=== PATIENT | female | born 1975 | race Caucasian/White ===

== ENCOUNTER → 2016-08-02 | Outpatient (CLI) | payer OTHER ==
[~2016-08-02] MED LIST: ASCO500T16 PO; ASPI-390 PO; CHLO1TAB47 PO; HYDR5SYP11 PO; MTR600X PO; OXYC5TAB PO; PRED50TA PO
[2016-08-02 18:10] LABS: THYROID STIMULATING HORMONE 0.577 uIu/ml (0.300-4.500)
== END | disposition home or self-care (01) ==
LOC: C.LABBFT 14:52
PROVIDERS: ATTEND Internal Medicine
DX: E03.9 Hypothyroidism, unspecified (principal)

== ENCOUNTER 2016-10-18 19:15 | Emergency (ER) | payer OTHER ==
[~2016-10-18] VITALS: Ht 162.6 cm; Wt 119.6 kg
[~2016-10-18 19:15] MED LIST changes: -ASCO500T16 PO; -HYDR5SYP11 PO; -PRED50TA PO
[2016-10-18 19:17] VITALS: TEMP 36.9; Ht 162.6 cm; Wt 119.6 kg
[2016-10-18] MEDS ORDERED: HYDROCODONE/HOMATROPINE SYRUP 5MG/1.5MG 5ML UDP PO STA (19:38)
[2016-10-18] MEDS ORDERED: ASCO500T16 PO (19:42)
[2016-10-18] MEDS ORDERED: KETOROLAC TROMETHAMINE 30 MG/ML VIAL IV STA (19:46)
[2016-10-18] MEDS ORDERED: SODIUM CHLORIDE 0.9% 500ML 500 ML IV STA (19:46)
--- NOTE | 2016-10-18 20:19 | DIAGNOSTIC IMAGING REPORT ---
CHEST ONE VIEW PORTABLE CLINICAL HISTORY: cough dyspnea COMPARISON STUDY: 03/26/2016 FINDINGS: The bones soft tissues and hemidiaphragms are normal. The cardiomediastinal silhouette is normal. The lungs are clear. The pulmonary vasculature is normal. IMPRESSION: Negative chest. Electronically signed by: Iraj Mcconnell M.D. 10/18/2016 8:18 PM Dictated Date/Time: 10/18/2016 8:17 PM
[2016-10-18 20:47] LABS: BASO % 0.1 %; BASO ABS # 0.01 K/uL (0-0.2); COMPLETE YES; EOS % 1.3 %; HEMATOCRIT 37.2 % (37-47); IG% 0.3 %; LYMPH ABS # 2.27 K/uL (1.2-3.4); MEAN CELL VOLUME 85.7 fL (80-100); MEAN CORPUSCULAR HEMOGLOBIN 30.4 pg (25-34); MEAN CORPUSCULAR HGB CONC 35.5 g/dl (32-36); MEAN PLATELET VOLUME 9.6 fL (7.4-10.4); MONO % 7.3 %; PLATELET COUNT 255 K/uL (130-400); RED BLOOD COUNT 4.34 M/uL (4.2-5.4); WHITE BLOOD COUNT 7.84 K/uL (4.8-10.8)
[2016-10-18 21:03] LABS: BUN/CREATININE RATIO 13.2 (10-20); CREATININE 0.75 mg/dl (0.60-1.20); POTASSIUM 3.7 mmol/L (3.5-5.1)
[2016-10-18 21:15] VITALS: BP 130/75; PULSE 96; O2SAT 96
[2016-10-18] MEDS ORDERED: PRED50TA PO (21:34)
[2016-10-18] MEDS ORDERED: HYDR5SYP11 PO (21:34)
[2016-10-18 21:47] LABS: CALCIUM 9.3 mg/dl (8.5-10.1)
--- NOTE | 2016-10-18 22:32 | EMERGENCY ROOM VISIT NOTE ---
History Report prepared by Toribio: Lay Buchanan Under the Supervision of: Dr. Eugene Mcrae D.O. First contact with patient: 19:20 Chief Complaint: FEVER Stated Complaint: COUGH,FEVER,LIGHTHEADED History of Present Illness The patient is a 41 year old female who presents to the Emergency Room with complaints of persistent cough starting 9 weeks ago. She went to her PCP 2-3 weeks ago and was diagnosed with bronchitis and started on azithromycin. Her cough seemed to get better, but has worsened again. She has vomiting with her cough and lightheadedness. She has SOB with her coughing but otherwise does not have any shortness of breath. This morning she began having rhinorrhea and sore throat. She denies any fever, abdominal pain, chest pain, or diarrhea. She denies any recent travel, surgery, hemoptysis, history of cancer, or being on hormones. She denies any history of blood clots. She denies any history of asthma or COPD. She does not smoke, but admits to chewing tobacco. Source of History: patient Onset: 9 weeks ago Position: other (global) Quality: other (cough) Timing: other (persistent) Associated Symptoms: + SOB, + sorethroat, + vomiting, No abdominal pain, No chest pain, No diarrhea, No fevers Note: Pt reports lightheadedness, rhinorrhea. Review of Systems See HPI for pertinent positives & negatives. A total of 10 systems reviewed and were otherwise negative. Past Medical & Surgical Medical Problems: (1) Chest pain (2) Menorrhagia (3) Uterine fibroid Surgical Problems: (1) History of partial hysterectomy Family History FH: cancer FH: heart disease Hypertension Kidney disease Kidney stones Social History Smoking Status: Never Smoker Smokeless Tobacco Use: Yes Drug Use: none Housing Status: lives with family Occupation Status: unemployed Current/Historical Medications Scheduled Ascorbic Acid (Ascorbic Acid), 500 MG PO DAILY Prednisone (Prednisone), 50 MG PO DAILY Scheduled PRN Hydrocodone W/ Homatropine (Hycodan 5/1.5MG 5 Ml), 5 ML PO Q6H PRN for Cough Allergies Coded Allergies: Red Dye (Verified Allergy, Intermediate, migraine, 04/19/16) Lactose Intolerance (GI) (Verified Allergy, Mild, UPSET STOMACH, 04/19/16) Uncoded Allergies: BEE STINGS (Allergy, Severe, ANAPHYLAXIS, 10/18/16) Physical Exam Vital Signs Date Time Temp Pulse Resp B/P Pulse Ox O2 Delivery O2 Flow Rate FiO2 10/18/16 21:15 96 18 130/75 96 Room Air 10/18/16 19:17 36.9 110 20 137/88 100 Room Air Physical Exam GENERAL: sitting up in bed, dry unproductive cough causing intermittent spit up. EYE EXAM: normal conjunctiva, PERRL and EOM's grossly intact EARS: TMs clear bilaterally. OROPHARYNX: no exudate, no erythema, lips, buccal mucosa, and tongue normal and mucous membranes are moist NECK: supple, no nuchal rigidity, no adenopathy, non-tender LUNGS: Clear to auscultation. Normal chest wall mechanics HEART: no murmurs, S1 normal and S2 normal ABDOMEN: abdomen soft, non-tender, normo-active bowel sounds, no masses, no rebound or guarding. BACK: Back is symmetrical on inspection and there is no deformity, no midline tenderness, no CVA tenderness. SKIN: no rashes and no bruising UPPER EXTREMITIES: upper extremities are grossly normal. LOWER EXTREMITIES: No pitting edema. Calves equal bilaterally. NEURO EXAM: Normal sensorium, cranial nerves II-XII grossly intact, normal speech, no gross weakness of arms, no gross weakness of legs. Medical Decision & Procedures ER Provider Diagnostic Interpretation: Xray results as stated below per my and the radiologist's interpretation: CHEST ONE VIEW PORTABLE CLINICAL HISTORY: cough dyspnea COMPARISON STUDY: 03/26/2016 FINDINGS: The bones soft tissues and hemidiaphragms are normal. The cardiomediastinal silhouette is normal. The lungs are clear. The pulmonary vasculature is normal. IMPRESSION: Negative chest. Electronically signed by: Iraj Mcconnell M.D. 10/18/2016 8:18 PM Dictated Date/Time: 10/18/2016 8:17 PM Laboratory Results 10/18/16 20:35 Red Blood Count 4.34, Mean Corpuscular Volume 85.7, Mean Corpuscular Hemoglobin 30.4, Mean Corpuscular Hemoglobin Concent 35.5, Mean Platelet Volume 9.6, Neutrophils (%) (Auto) 62.0, Lymphocytes (%) (Auto) 29.0, Monocytes (%) (Auto) 7.3, Eosinophils (%) (Auto) 1.3, Basophils (%) (Auto) 0.1, Neutrophils # (Auto) 4.87, Lymphocytes # (Auto) 2.27, Monocytes # (Auto) 0.57, Eosinophils # (Auto) 0.10, Basophils # (Auto) 0.01 10/18/16 20:35 Test 10/18/16 19:48 10/18/16 20:35 Influenza Type A Antigen Neg for Influ A (NEG) Influenza Type B Antigen Neg for Influ B (NEG) White Blood Count 7.84 K/uL (4.8-10.8) Red Blood Count 4.34 M/uL (4.2-5.4) Hemoglobin 13.2 g/dL (12.0-16.0) Hematocrit 37.2 % (37-47) Mean Corpuscular Volume 85.7 fL (80-100) Mean Corpuscular Hemoglobin 30.4 pg (25-34) Mean Corpuscular Hemoglobin Concent 35.5 g/dl (32-36) Platelet Count 255 K/uL (130-400) Mean Platelet Volume 9.6 fL (7.4-10.4) Neutrophils (%) (Auto) 62.0 % Lymphocytes (%) (Auto) 29.0 % Monocytes (%) (Auto) 7.3 % Eosinophils (%) (Auto) 1.3 % Basophils (%) (Auto) 0.1 % Neutrophils # (Auto) 4.87 K/uL (1.4-6.5) Lymphocytes # (Auto) 2.27 K/uL (1.2-3.4) Monocytes # (Auto) 0.57 K/uL (0.11-0.59) Eosinophils # (Auto) 0.10 K/uL (0-0.5) Basophils # (Auto) 0.01 K/uL (0-0.2) RDW Standard Deviation 40.8 fL (36.4-46.3) RDW Coefficient of Variation 12.9 % (11.5-14.5) Immature Granulocyte % (Auto) 0.3 % Immature Granulocyte # (Auto) 0.02 K/uL (0.00-0.02) Anion Gap 10.0 mmol/L (3-11) Est Creatinine Clear Calc Drug Dose 125.7 ml/min Estimated GFR () 114.8 Estimated GFR (Non- 99.0 BUN/Creatinine Ratio 13.2 (10-20) Calcium Level 9.3 mg/dl (8.5-10.1) Total Bilirubin 0.4 mg/dl (0.2-1) Direct Bilirubin 0.1 mg/dl (0-0.2) Aspartate Amino Transf (AST/SGOT) 17 U/L (15-37) Alanine Aminotransferase (ALT/SGPT) 32 U/L (12-78) Alkaline Phosphatase 91 U/L (45-117) Total Protein 6.9 gm/dl (6.4-8.2) Albumin 3.7 gm/dl (3.4-5.0) Laboratory results per my review. Medications Administered Medications (Trade) Dose Ordered Sig/Marshal Route Start Time Stop Time Status Last Admin Dose Admin Hydrocodone Bit/ Homatropine Methylb 5 ml 5 ml NOW STAT PO 10/18/16 19:38 10/18/16 19:41 DC 10/18/16 20:21 5 ML Sodium Chloride (Nss 500ml) 500 ml @ 999 mls/hr Q31M STAT IV 10/18/16 19:46 10/18/16 20:16 DC 10/18/16 19:46 999 MLS/HR Ketorolac Tromethamine (Toradol Inj) 30 mg NOW STAT IV 10/18/16 19:46 10/18/16 19:47 DC 10/18/16 20:22 30 MG Prednisone (PredniSONE TAB) 60 mg NOW STAT PO 10/18/16 21:36 10/18/16 21:37 DC 10/18/16 21:46 60 MG ECG Indication: SOB/dyspnea Rate (beats per minute): 99 Rhythm: sinus rhythm Findings: no acute ischemic change, no ectopy, other (normal axis, normal intervals) ED Course ED COURSE: Vital signs were reviewed and showed tachycardia. The patients medical record was reviewed The above diagnostic studies were performed and reviewed. ED treatments and interventions as stated above. 1923: The patient was evaluated in room C3. A complete history and physical examination was performed. 1937: Hycodan Syrup 5 ml PO. 1945: Toradol Inj 30 mg IV, NSS 500 ml @ 999 mls/hr IV. 2135: Prednisone 60 mg PO. 2137: Upon reevaluation, the patient is resting comfortably.I discussed my findings with the patient and she understands and agrees with the treatment plan. Based on the patients age, coexisting illnesses, exam and lab findings the decision to treat as an outpatient was made. The patient remained stable while under my care. The patient appeared well at the time of discharge. Medical Decision Differential diagnoses includes but is not limited to pneumonia, bronchitis, COPD/Asthma exacerbation, pneumothorax, pulmonary embolism, congestive heart failure, acute coronary syndrome Patient is a 41-year-old female that presents the ER for cough associated with runny nose and a sore throat which started today. Her cough has been present for the past 2-3 weeks. She has previously been on azithromycin with no improvement. She has also tried Tessalon Perles as well. Labs show no significant leukocytosis or anemia. BMP along with LFTs, bilirubin, lipase was all negative. Influenza A and B were negative. Rapid strep was negative. Chest x-ray was unremarkable. Vitals show a mild tachycardia. EKG was unremarkable. No ischemia. Based on her symptoms I do feel this is most consistent with a viral URI with her runny nose, sore throat and and associated with cough. I did not test her for pertussis as she has been treated. She does present with more of a waxing and waning presentation of the cough per the patient. This is not consistent with a PE. With the Hycodan the patient's symptoms improved significantly. Her abdominal exam was benign. Patient was discharged with hycadon, prednisone and instructed to take honey to assist with the coughing. At this time I felt there is no benefit of antibiotics. Discussed with Pt concerning signs and symptoms to watch out for. Pt was instructed to follow up with their PCP and discussed with the patient their option to return to the ED at anytime for persistent or worsening symptoms. The appropriate anticipatory guidance and out-patient management, including indications for return to the emergency department, were explained at length to the patient and understood. [place] Drug Monitoring Program Search Results: patient reviewed within database, no issues identified Impression Primary Impression: URI (upper respiratory infection) Additional Impressions: Post-tussive emesis Pharyngitis Scribe Attestation The scribe's documentation has been prepared under my direction and personally reviewed by me in its entirety. I confirm that the note above accurately reflects all work, treatment, procedures, and medical decision making performed by me. Departure Information Dispostion Home / Self-Care Prescriptions Prednisone (PREDNISONE) 50 Mg Tab 50 MG PO DAILY for 4 Days, TAB Prov: Eugene Mcrae, DO 10/18/16 Hydrocodone W/ Homatropine (HYCODAN 5/1.5MG 5 ML) 1 Syp Syp 5 ML PO Q6H Y for Cough, #30 ML Prov: Eugene Mcrae, DO 10/18/16 Referrals Daniel Escamilla M.D. (PCP) Forms HOME CARE DOCUMENTATION FORM, IMPORTANT VISIT INFORMATION Patient Instructions Dextromethorphan Hydrobromide Guaifenesin Oral syrup, ED URI Viral, My [facility] Additional Instructions Please follow up with your primary care doctor with in the next 24 hours. Any worsening of your symptoms, please return to the ED immediately. This includes fevers greater than 100.4, passing out, chest pain, new shortness of breath, or any other concerning signs or symptoms from your standpoint. Please take steroids as prescribed. Please take 1 teaspoon of honey 4 times a day as needed for coughing. Please take hycadon as prescribed. Do not take this in combination with any codeine or any other coughing product. Problem Qualifiers Primary Impression: URI (upper respiratory infection) URI type: unspecified URI Qualified Codes: J06.9 - Acute upper respiratory infection, unspecified Additional Impressions: Pharyngitis Pharyngitis/tonsillitis etiology: unspecified etiology Qualified Codes: J02.9 - Acute pharyngitis, unspecified
== END 2016-10-18 21:58 | disposition home or self-care (01) ==
LOC: C.EDB 19:15 → C.EDC 21:58
DX: J06.9 Acute upper respiratory infection, unspecified (principal); R11.10 Vomiting, unspecified; J02.9 Acute pharyngitis, unspecified; Z82.49 Family history of ischemic heart disease and other diseases of the circulatory system

== ENCOUNTER → 2016-11-11 | Outpatient (CLI) | payer OTHER ==
[~2016-11-11] MED LIST changes: +ASCO500T16 PO; -ASPI-390 PO; -CHLO1TAB47 PO; -MTR600X PO; -OXYC5TAB PO
== END | disposition home or self-care (01) ==
LOC: C.PATHSPEC 17:45
PROVIDERS: ATTEND Nurse Practitioner
DX: L98.9 Disorder of the skin and subcutaneous tissue, unspecified (principal)

== ENCOUNTER → 2016-12-23 | Outpatient (CLI) | payer OTHER ==
--- NOTE | 2016-12-23 15:21 | MAMMOGRAPHY REPORT ---
BILATERAL DIGITAL SCREENING MAMMOGRAM TOMOSYNTHESIS WITH CAD: 12/23/2016 CLINICAL HISTORY: Baseline examination. Routine screening. Patient has no complaints. TECHNIQUE: Breast tomosynthesis in addition to standard 2D mammography was performed. Current study was also evaluated with a Computer Aided Detection (CAD) system. COMPARISON: No prior exams were available for comparison. BREAST COMPOSITION: The tissue of both breasts is heterogeneously dense, which may obscure small mas ses. FINDINGS: No suspicious masses, calcifications, or areas of architectural distortion are noted in ei ther breast. IMPRESSION: ACR BI-RADS CATEGORY 1: NEGATIVE There is no mammographic evidence of malignancy. A 1 year screening mammogram is recommended. The pa tient will receive written notification of the results. Approximately 10% of breast cancers are not detected with mammography. A negative mammographic report should not delay biopsy if a clinically suggestive mass is present. Alison Anand M.D. /:12/23/2016 14:57:24 Internal Grinder: Carmen Reed, M, [facility] letter sent: Normal 1/2 BI-RADS Code: ACR BI-RADS Category 1: Negative
== END | disposition home or self-care (01) ==
LOC: C.MAMM 12:41
PROVIDERS: ATTEND Obstetrics & Gynecology
DX: Z12.31 Encounter for screening mammogram for malignant neoplasm of breast (principal)

== ENCOUNTER → 2017-02-02 | Outpatient (CLI) | payer OTHER ==
--- NOTE | 2017-02-02 09:26 | DIAGNOSTIC IMAGING REPORT ---
SOFT TISS HEAD/NECK-THYROID CLINICAL HISTORY: 41 years-old Female with E04.2 Multiple thyroid [id number]. Patient reportedly has a history of thyroid cancer with prior radiation therapy. COMPARISON: CTA chest 02/25/2016 TECHNIQUE: Multiple real time sonographic images of the thyroid were obtained accessing gutierrez scale appearance and color doppler flow. FINDINGS: MEASUREMENTS: Right lobe: 5.2 x 2.0 x 2.3 cm Left lobe: 4.7 x 1.4 x 1.6 cm Isthmus: 0.5 cm PARENCHYMA: The thyroid parenchymal echotexture is mildly heterogeneous. NODULES: There are several nodules seen within the right thyroid, all of which are somewhat hypoechoic and solid with regular margins and internal vascularity. Largest nodules measure 1.4 x 1.5 x 1.4 cm and 1.4 x 1.5 x 1.5 cm. Hypoechoic solid and cystic nodule of the mid left thyroid is seen, are 0.9 x 1.3 x 0.9 cm. Note that nodules of the right thyroid were seen on comparison CT of the chest, largest which measured up to approximately 1.7 cm. IMPRESSION: Multinodular thyroid with two solid nodules in the right thyroid seen measuring up to 1.5 cm with intermediate suspicion features according to the [place] [employer]. Further evaluation with FNA may be considered. The above report was generated using voice recognition software. It may contain grammatical, syntax or spelling errors. Electronically signed by: Vinh Osborn M.D. 02/02/2017 9:25 AM Dictated Date/Time: 02/02/2017 9:19 AM
== END | disposition home or self-care (01) ==
LOC: C.ULTR 08:29
PROVIDERS: ATTEND Nurse Practitioner
DX: E04.2 Nontoxic multinodular goiter (principal)

== ENCOUNTER → 2017-02-08 | Outpatient (CLI) | payer OTHER ==
--- NOTE | 2017-02-08 11:08 | DIAGNOSTIC IMAGING REPORT ---
GUIDANCE NEEDLE PLACEMENT CLINICAL HISTORY: 41 years-old Female presenting with MULTIPLE THYROID NODULES. TECHNIQUE: Real-time grayscale and limited color Doppler ultrasound imaging of the thyroid and base of the neck was performed for ultrasound-guided fine-needle aspiration. COMPARISON: Ultrasound from 02/02/2017. PROCEDURE: The risks, benefits, and alternatives to the procedure were discussed with the patient. Written informed consent was obtained. The patient was placed supine in ultrasound, and the 1.5 cm and 1.3 cm nodules in the right lobe of the thyroid were localized by ultrasound and selected for fine needle aspiration. The right neck was prepped and draped in the usual sterile fashion. The larger interpolar nodule was aspirated under ultrasound guidance with 2 passes utilizing 25-gauge needles. The smaller lower pole nodule was aspirated under ultrasound guidance with 4 passes utilizing 25-gauge needles. Specimens were reviewed by the pathologist at the time of biopsy and were deemed adequate for diagnosis. The patient tolerated the procedure well and left the department in satisfactory condition. IMPRESSION: Successful fine-needle aspiration of the 2 right thyroid nodules as above. Electronically signed by: Robert Cummings M.D. 02/08/2017 11:07 AM Dictated Date/Time: 02/08/2017 11:06 AM
== END | disposition home or self-care (01) ==
LOC: C.ULTR 08:42
PROVIDERS: ATTEND Nurse Practitioner
DX: E04.2 Nontoxic multinodular goiter (principal); R89.6 Abnormal cytological findings in specimens from other organs, systems and tissues

== ENCOUNTER → 2017-03-22 | Outpatient (CLI) | payer OTHER ==
--- NOTE | 2017-03-22 10:52 | Discharge Instructions ---
Discharge Instructions Procedure Procedure Date: Mar 22, 2017. Reason for visit: Repeat Thyroid Nodule, Rt Side. Discharge Discharge Date: Mar 22, 2017. Discharge Diagnosis: Right sided thyroid nodules Instructions Activity Recommendations: No limitations Return to School/Work: no limitations Recommended Home Diet: Resume Previous Diet Provider Instructions: Ultrasound guided biopsy of 2 right-sided thyroid nodules is performed with 2 passes in the midpole nodule and 3 passes in the lower pole nodule utilizing 25- gauge needles. The procedure was well tolerated and without immediate complication. ACTIVITY RECOMMENDATIONS: * Rest today. * Resume regular activity in one day. MEDICATIONS: * May take Tylenol or Ibuprofen as needed for pain. DIET: * Resume previous diet. SPECIAL CARE INSTRUCTIONS: Call your doctor if: * Temperature above 101 degrees F. * Pain not relieved by pain medicine ordered. * Increased drainage or redness from incision. * Notify your doctor with any questions or concerns. Call your doctor or go to the nearest Emergency Department if you experience: * Increased chest pain or shortness of breath. FOLLOW UP VISIT: Follow-up with Referring Physician as scheduled. Allergies Coded Allergies: Red Dye (Verified Allergy, Intermediate, migraine, 04/19/16) Lactose Intolerance (GI) (Verified Allergy, Mild, UPSET STOMACH, 04/19/16) Uncoded Allergies: BEE STINGS (Allergy, Severe, ANAPHYLAXIS, 10/18/16) Natalia Love Recommendations: Call your doctor if: * Temperature above 101 degrees * Pain not relieved by pain medicine ordered * There is increased drainage or redness from any incision * You have any unanswered questions or concerns. Your Doctors Instructions noted above were prepared by provider Taco Junior. Patient Signature Section: Patient Instructions Signature Page Joe Rudolph Patient (or Guardian) Signature/Date: I have read and understand the instructions given to me by my caregivers. Caregiver/RN/Doctor Signature/Date: The above-named patient and/or guardian has received patient instructions on this date. + Original Patient Signature Page (only) stays with chart. Please make copy for patient.
--- NOTE | 2017-03-22 11:01 | DIAGNOSTIC IMAGING REPORT ---
ULTRASOUND-GUIDED FINE-NEEDLE ASPIRATION THYROID x 2 CLINICAL HISTORY: Right-sided thyroid nodules. Repeat aspiration. COMPARISON STUDY: Thyroid ultrasound dated 02/02/2017. PROCEDURE: The risks, benefits, and alternatives to the procedure were discussed with the patient. Written informed consent was obtained. The patient was placed supine in ultrasound, and the 1.5 x 1.4 x 1.4 cm hypoechoic nodule in the right midpole and the 1.5 x 1.5 x 1.4 cm hypoechoic nodule in the lower pole of the right thyroid lobe were localized by ultrasound and selected for fine needle aspiration. The right neck was prepped and draped in the usual sterile fashion. The midpole nodule was aspirated under ultrasound guidance with 2 passes utilizing 25-gauge needles and the lower pole nodule was aspirated under ultrasound guidance with 3 passes utilizing 25-gauge needles. Specimens for both nodules were reviewed by the pathologist in real-time and deemed adequate for diagnosis. The patient tolerated the procedure well and left the department in satisfactory condition. IMPRESSION: Completed repeat fine-needle aspiration of a 2 right-sided thyroid nodules as above. Electronically signed by: Taco Junior M.D. 03/22/2017 10:59 AM Dictated Date/Time: 03/22/2017 10:57 AM
== END | disposition home or self-care (01) ==
LOC: C.ULTR 09:51
PROVIDERS: ATTEND Nurse Practitioner
DX: E04.2 Nontoxic multinodular goiter (principal)

== ENCOUNTER → 2017-08-08 | Outpatient (CLI) | payer OTHER ==
[~2017-08-08] MED LIST changes: +DICL-201 PO; +DULO-24 PO; +PRLSR20 PO; +SUMA50TA15 PO
[2017-08-08 12:39] LABS: HEMATOCRIT 39.4 % (37-47); HEMOGLOBIN 13.6 g/dL (12.0-16.0); MEAN CELL VOLUME 86.6 fL (80-100); MEAN CORPUSCULAR HEMOGLOBIN 29.9 pg (25-34); MEAN CORPUSCULAR HGB CONC 34.5 g/dl (32-36); MEAN PLATELET VOLUME 10.1 fL (7.4-10.4); PLATELET COUNT 312 K/uL (130-400); RED CELL DISTRIBUTION WIDTH CV 13.1 % (11.5-14.5); RED CELL DISTRIBUTION WIDTH SD 41.7 fL (36.4-46.3); WHITE BLOOD COUNT 5.79 K/uL (4.8-10.8)
[2017-08-08 12:41] LABS: ALBUMIN 3.9 gm/dl (3.4-5.0); ALT/SGPT 324 U/L (12-78); AST/SGOT 116 U/L (15-37); BLOOD UREA NITROGEN 14 mg/dl (7-18); CALCIUM 9.3 mg/dl (8.5-10.1); CARBON DIOXIDE 25 mmol/L (21-32); CREATININE 0.96 mg/dl (0.60-1.20); GLUCOSE 84 mg/dl (70-99); POTASSIUM 4.3 mmol/L (3.5-5.1); SODIUM 139 mmol/L (136-145)
[2017-08-08 12:52] LABS: ALKALINE PHOSPHATASE 149 U/L (45-117); CHOLESTEROL 216 mg/dl (0-200); LDL CHOLESTEROL CALCULATED 126 mg/dl; TOTAL PROTEIN 7.9 gm/dl (6.4-8.2)
== END | disposition home or self-care (01) ==
LOC: C.LABBFT 10:29
PROVIDERS: ATTEND Internal Medicine
DX: E03.9 Hypothyroidism, unspecified (principal); Z13.220 Encounter for screening for lipoid disorders

== ENCOUNTER → 2017-08-09 | Outpatient (CLI) | payer OTHER ==
[2017-08-09 13:12] LABS: BASO % 0.3 %; BASO ABS # 0.02 K/uL (0-0.2); EOS % 1.4 %; EOS ABS # 0.09 K/uL (0-0.5); HEMATOCRIT 39.4 % (37-47); HEMOGLOBIN 13.6 g/dL (12.0-16.0); IG# 0.02 K/uL (0.00-0.02); LYMPH % 39.1 %; LYMPH ABS # 2.54 K/uL (1.2-3.4); MEAN CELL VOLUME 86.2 fL (80-100); MEAN CORPUSCULAR HEMOGLOBIN 29.8 pg (25-34); MEAN CORPUSCULAR HGB CONC 34.5 g/dl (32-36); MEAN PLATELET VOLUME 10.3 fL (7.4-10.4); MONO % 8.2 %; MONO ABS # 0.53 K/uL (0.11-0.59); NEUT % 50.7 %; PLATELET COUNT 330 K/uL (130-400); RED CELL DISTRIBUTION WIDTH SD 41.4 fL (36.4-46.3)
[2017-08-09 13:35] LABS: BLOOD UREA NITROGEN 12 mg/dl (7-18); CALCIUM 9.3 mg/dl (8.5-10.1); CARBON DIOXIDE 27 mmol/L (21-32); CREATININE 0.94 mg/dl (0.60-1.20); GLUCOSE 84 mg/dl (70-99); POTASSIUM 4.4 mmol/L (3.5-5.1); SODIUM 138 mmol/L (136-145)
== END | disposition home or self-care (01) ==
LOC: C.LABBC 10:48
PROVIDERS: ATTEND Orthopaedic Surgery
DX: Z01.812 Encounter for preprocedural laboratory examination (principal); S83.241D Other tear of medial meniscus, current injury, right knee, subsequent encounter; X58.XXXA Exposure to other specified factors, initial encounter

== ENCOUNTER → 2017-08-11 | Outpatient (CLI) | payer OTHER ==
[~2017-08-11] MED LIST changes: -ASCO500T16 PO
[2017-08-11 18:32] LABS: HEP C IGG 13 YRS+OLDER_RFLX NEG (NEG)
== END | disposition home or self-care (01) ==
LOC: C.LABPVFM 11:40
PROVIDERS: ATTEND Internal Medicine
DX: R74.0 Nonspecific elevation of levels of transaminase and lactic acid dehydrogenase [LDH] (principal)

== ENCOUNTER → 2017-08-16 | Outpatient (CLI) | payer OTHER ==
--- NOTE | 2017-08-16 10:05 | DIAGNOSTIC IMAGING REPORT ---
(LIVER) ABDOMEN LIMITED HISTORY: 42 years-old Female R74.0 Elevated transaminase [id number] COMPARISON: CTA of the chest 02/25/2016 TECHNIQUE: Multiple real-time sonographic images of the abdominal right upper quadrant were obtained assessing grayscale appearance and color flow FINDINGS: Study is limited secondary to patient body habitus. The pancreas is not well seen, however the visualized portions appear unremarkable. There is increased echogenicity with poor through transmission of the liver suggesting probable fatty infiltration. No focal hepatic mass lesions or intrahepatic biliary ductal dilation. Liver measures up to 17.4 cm. Common bile duct measures in the upper limits of normal, 6 mm. No obstructing stone or lesion identified. Prior cholecystectomy. Hypoechoic probable cyst of the lower pole right kidney measures up to 2.4 cm. Evaluation of this lesion is limited secondary to body habitus. No internal enhancement of this lesion identified. IMPRESSION: 1. Prior cholecystectomy. Common bile duct measuring in the upper limits of normal at 6 mm is likely secondary to physiologic postcholecystectomy state. 2. Hepatic steatosis. The above report was generated using voice recognition software. It may contain grammatical, syntax or spelling errors. Electronically signed by: Vinh Osborn M.D. 08/16/2017 10:03 AM Dictated Date/Time: 08/16/2017 10:00 AM
== END | disposition home or self-care (01) ==
LOC: C.ULTR 08:25
PROVIDERS: ATTEND Internal Medicine
DX: R74.0 Nonspecific elevation of levels of transaminase and lactic acid dehydrogenase [LDH] (principal); K76.0 Fatty (change of) liver, not elsewhere classified

== ENCOUNTER → 2017-08-22 | Outpatient (CLI) | payer OTHER | END | disposition home or self-care (01) | LOC: C.LABSPEC 13:33 | PROVIDERS: ATTEND Obstetrics & Gynecology | DX: R10.2 Pelvic and perineal pain (principal) ==

== ENCOUNTER → 2017-08-30 | Outpatient (CLI) | payer OTHER ==
[~2017-08-30] MED LIST changes: +KETO10TA PO; +OXYC-57 PO
[2017-08-30 17:25] LABS: BLOOD UREA NITROGEN 9 mg/dl (7-18); CREATININE 0.89 mg/dl (0.60-1.20); GLUCOSE 85 mg/dl (70-99)
[2017-08-30 17:26] LABS: ALBUMIN 4.1 gm/dl (3.4-5.0); ALT/SGPT 29 U/L (12-78); CALCIUM 9.5 mg/dl (8.5-10.1); CARBON DIOXIDE 27 mmol/L (21-32); POTASSIUM 4.2 mmol/L (3.5-5.1); SODIUM 137 mmol/L (136-145)
[2017-08-30 17:28] LABS: ALKALINE PHOSPHATASE 99 U/L (45-117); AST/SGOT 13 U/L (15-37); TOTAL PROTEIN 7.9 gm/dl (6.4-8.2)
[2017-09-03 14:29] LABS: ANA SCREEN TC 249X NEGATIVE (NEGATIVE)
== END | disposition home or self-care (01) ==
LOC: C.LABBFT 15:16
PROVIDERS: ATTEND Physician Assistant
DX: R74.0 Nonspecific elevation of levels of transaminase and lactic acid dehydrogenase [LDH] (principal); K76.0 Fatty (change of) liver, not elsewhere classified

== ENCOUNTER → 2017-09-01 | Day surgery (SDC) | payer OTHER ==
[2017-08-10 11:02] VITALS: Ht 162.6 cm; Wt 118.2 kg
--- NOTE | 2017-08-16 09:20 | PAT Medication Instructions ---
Service Date Aug 16, 2017. Current Home Medication List Diclofenac (Voltaren), 75 MG PO BID PRN for PRN Duloxetine HCl (Cymbalta), 1 CAP PO HS Omeprazole (Prilosec), 20 MG PO DAILY PRN for Indigestion Sumatriptan Succinate (Imitrex), 50 MG PO PRN Medication Instructions For Your Scheduled Surgery - Hold the following medications per your surgeon's instructions: Diclofenac (Voltaren), 75 MG PO BID PRN for PRN - Take the following medications the morning of surgery with a sip of water: Omeprazole (Prilosec), 20 MG PO DAILY PRN for Indigestion (if needed) Sumatriptan Succinate (Imitrex), 50 MG PO PRN (if needed) - Take the following medications as scheduled the night before surgery: Duloxetine HCl (Cymbalta), 1 CAP PO HS Omeprazole (Prilosec), 20 MG PO DAILY PRN for Indigestion (if needed) Sumatriptan Succinate (Imitrex), 50 MG PO PRN (if needed) If you have any questions please call us at [phone] or [phone] or [phone]
[~2017-09-01] VITALS: Ht 162.6 cm; Wt 118.2 kg
[~2017-09-01] MED LIST changes: +ATROPINE SULFATE 0.1 MG/ML 5ML SYR IV PRN; +CEFAZOLIN 2000MG IV PUSH 15 ML IV SCH; +DEXAMETHASONE SOD INJ 4 MG/ML VIAL ONE; +EpHEDrine SULFATE INJ 50 MG/ML AMP IV PRN; +EpINEphrine INJ 1MG/ML AMP 1 MG/ML AMP ONE; +FENTANYL CITRATE INJ 50 MCG/1 ML 2 ML VIAL IV PRN; +FENTANYL CITRATE INJ 50 MCG/1 ML 2 ML VIAL ONE; +FLUMAZENIL 0.1 MG/1 ML 10 ML VIAL IV PRN; +HYDROCODONE/ACETAMIN 5/325MG TAB PO PRN; +HYDROmorphone INJ 2 MG/ML SYR/VIAL IV PRN; +KETOROLAC TROMETHAMINE 30 MG/ML VIAL ONE; +LABETALOL HCL IV 5 MG/ML 20ML IV PRN; +LACTATED RINGER'S 1000ML 1,000 ML IV SCH; +LIDOCAINE HCL 2% 2 ML VIAL (20MG/ML) ONE; +MEPERIDINE HCL 25 MG/ML CARP IV PRN; +METOCLOPRAMIDE HCL INJ 5 MG/ML 2 ML VIAL ONE; +MIDAZOLAM HCL 1 MG/ML 2ML VIAL ONE; +NALOXONE HCL 0.4 MG/1 ML VIAL/CARP IV PRN; +ONDANSETRON INJ 2 MG/ML 2 ML VIAL IV PRN; +ONDANSETRON INJ 2 MG/ML 2 ML VIAL ONE; +PHENYLEPHRINE 100MCG/ML 5ML SYR IV PRN; +PROPOFOL IV EMULSION 10 MG/ML 20 ML VIAL IV ONE; +ROPIVACAINE 0.5% 5 MG/ML 30 ML VIAL ONE; +SODIUM CHLORIDE 0.9% 1000ML 1,000 ML IV SCH; +SUCCINYLCHOLINE CHLORIDE 20 MG/ML 10 ML VIAL IV ONE
--- NOTE | 2017-09-01 08:51 | History & Physical Bridge Note ---
H&P Re-Evaluation Bridge Note: I have examined the patient, reviewed the History & Physical and in the interval since the performance of the History & Physical I have noted the following changes of clinical significance: No changes noted
--- NOTE | 2017-09-01 10:20 | [facility] Post Operative Brief Note ---
Immediate Operative Summary Operative Date Sep 01, 2017. Pre-Operative Diagnosis Right Knee Acute Medial and Lateral Meniscal Tear, Chondromalacia Post-Operative Diagnosis same Procedure(s) Performed Right Knee Arthroscopy, Partial Medial and Partial Lateral Meniscectomies, Chondroplasty Surgeon Dr. Monge Figure Clerk Surgeon(s) Riley Duque PA-C Estimated Blood Loss 5 mL Findings Consistent with Post-Op Diagnosis Specimens none Anesthesia Type General Complication(s) none Disposition Disposition: Recovery Room / PACU
--- NOTE | 2017-09-01 10:29 | Discharge Instructions-SurgCtr ---
Discharge Instructions Date of Service Sep 01, 2017. Visit Reason for Visit: Right Knee Acute Medial Meniscal Tear Discharge Discharge Diagnosis / Problem: SAME ABOVE Discharge Goals Goal(s): Decrease discomfort, Improve function Activity Recommendations Activity Limitations: as noted below Lifting Limitations: gradually increase as tolerated Exercise/Sports Limitations: gradually increase as tolerated Driving or Machine Use: resume 1 day after discharge (OR WHEN OFF OF PAIN MEDICATION ) Anesthesia . Post Anesthesia Instructions: If you have had General Anesthesia or IV Sedation: * Do not drive today. * Resume driving when surgeon permits. * Do not make important decisions or sign legal documents today. * Call surgeon for: 1. Temperature elevations greater than 101 degrees F. 2. Uncontrollable pain. 3. Excessive bleeding. 4. Persistent nausea and vomiting. 5. Medication intolerance (nausea, vomiting or rash). * For nausea and vomiting use only clear liquids such as: tea, soda, bouillon until nausea subsides, then gradually increase diet as tolerated. * If you have any concerns or questions, call your surgeon's office. If physician is unavailable and it is an emergency, call 911 or go to the nearest emergency room. . Diet Recommendations Home Diet: no limitations Fluid Restriction: None Procedures Procedures Performed: Right Knee Arthroscopy, Partial Medial and Partial Lateral Meniscectomies, Chondroplasty Pending Studies Studies pending at discharge: no Work Instructions Return To Work: after follow-up Medical Emergencies . Who to Call and When: Medical Emergencies: If at any time you feel your situation is an emergency, please call 911 immediately. . Non-Emergent Contact Non-Emergency issues call your: Primary Care Provider Call Non-Emergent contact if: you have a fever, temperature is above 101.5 . . "Provider Documentation" section prepared by Bony Duque. .
[2017-09-01 11:05] VITALS: TEMP 36.7
[2017-09-01 11:45] VITALS: BP 131/75; PULSE 71; O2SAT 99
--- NOTE | 2017-09-01 11:47 | Anesthesia Progress Nt - [facility] ---
Anesthesia Post Op Note Date & Time Sep 01, 2017 at 11:47 Vital Signs Pain Intensity: 2 Vital Signs Past 12 Hours Date Time Temp Pulse Resp B/P (MAP) Pulse Ox O2 Delivery O2 Flow Rate FiO2 09/01/17 11:45 71 16 131/75 (93) 99 Room Air 09/01/17 11:05 36.7 79 18 111/74 (86) 97 Room Air 09/01/17 10:55 36.7 82 18 141/83 100 Room Air 09/01/17 10:52 87 27 09/01/17 10:52 90 27 99 09/01/17 10:51 133/91 09/01/17 10:47 87 17 100 09/01/17 10:47 88 17 09/01/17 10:46 152/82 09/01/17 10:42 84 22 09/01/17 10:42 84 22 100 09/01/17 10:41 152/81 09/01/17 10:37 89 25 09/01/17 10:37 89 25 100 09/01/17 10:36 135/95 09/01/17 10:34 90 17 100 09/01/17 10:34 88 17 09/01/17 10:31 123/99 09/01/17 10:30 36.4 101 16 180/93 95 Mask 09/01/17 10:29 103 09/01/17 10:29 103 180/93 94 09/01/17 08:28 36.6 86 18 141/97 (112) 99 Room Air Notes Mental Status: alert / awake / arousable, participated in evaluation Pt Amnestic to Procedure: Yes Nausea / Vomiting: adequately controlled Pain: adequately controlled Airway Patency, RR, SpO2: stable & adequate BP & HR: stable & adequate Hydration State: stable & adequate Anesthetic Complications: no major complications apparent
--- NOTE | 2017-09-01 14:59 | OPERATIVE REPORT ---
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 POSTOPERATIVE DIAGNOSES: Same. PROCEDURE: Right knee arthroscopy with chondroplasty and partial medial and lateral meniscectomy. SURGEON: Dr. Eladio Monge. EMERGENCY MEDICAL SERVICE COORDINATOR: Riley Duque PA-C, whose assistance was necessary for positioning of the leg and helping with instrumentation. ANESTHESIA: General. COMPLICATIONS: None. CONDITION: Stable to PACU. INDICATIONS: Joe is a 42-year-old female who has been having a 12-year history of right knee pain. When she came to my office, MRI and clinical examination showed medial and lateral meniscus tears and chondromalacia. She elected to undergo arthroscopy. OPERATION AND FINDINGS: On 09/01/2017, she arrived at [facility] for the above procedure. She was seen in the preoperative holding and the operative extremity was identified and signed. She was given a preoperative antibiotic, taken back to the operating room, laid on table in supine position and put under general anesthesia. The right knee was then prepped and draped in sterile fashion. Time-out was done. The patient's operative extremity was properly identified. A scope was introduced in the lateral parapatellar portal. Diagnostic arthroscopy showed no cartilage damage to the patella or the trochlea. The scope was brought into the medial compartment. There were some grade 3 chondral changes along the medial aspect of the distal medial femoral condyle. There was a very complex tear of the entire body of the medial meniscus. The horns were intact, but the medial body was a macerated. A medial parapatellar portal was made under direct visualization. A shaver and a biter were used to remove the unstable pieces of meniscus. The majority of the medial body had to be removed because it was just simply macerated. A shaver was then used to complete a chondroplasty of the distal medial femoral condyle. The scope was then brought into the trochlea. ACL and PCL were intact. The scope was brought into the lateral compartment and there was tearing of the body of the lateral meniscus as well. It was not as bad as her medial side. A shaver was used to debride off the unstable lateral meniscus tear. There was no cartilage damage laterally. The scope was then placed in the medial parapatellar portal. Repeat diagnostic arthroscopy showed no additional pathology. The scope was brought into the posterior aspect of the knee and no additional pathology was identified. Final diagnostic arthroscopy showed no additional tears or lesions. The knee was irrigated. Arthroscopic instrument removed. Portal sites were closed with 3-0 nylon. The knee was then injected with 30 mL of Naropin with epinephrine and Toradol. She was then placed in a soft compressive dressing and taken to the postanesthesia care unit in stable condition. She tolerated the procedure well. I attest to the content of the Intraoperative Record and any orders documented therein. Any exception s are noted below.
== END | disposition home or self-care (01) ==
LOC: X.SURG 08:14
PROVIDERS: ATTEND Orthopaedic Surgery
DX: M23.231 Derangement of other medial meniscus due to old tear or injury, right knee (principal); M23.261 Derangement of other lateral meniscus due to old tear or injury, right knee; M94.261 Chondromalacia, right knee; F32.9 Major depressive disorder, single episode, unspecified; F17.200 Nicotine dependence, unspecified, uncomplicated; Z91.030 Bee allergy status; Z90.710 Acquired absence of both cervix and uterus; Z90.49 Acquired absence of other specified parts of digestive tract